=== PATIENT | male | born 1995 | race African-American/Black ===

== ENCOUNTER 2017-01-13 18:58 | Emergency (ER) | payer SELFPAY ==
--- NOTE | 2017-01-15 13:23 | ER ---
ADMIT: 01/13/2017 RM/LOC: ER [facility] MR#: [id number] [id number] [place], [place] [id number] ED, [address] [facility] [address] [place] [address] Emergency Room Report SEX: M AGE: 21 : 1995 DATE: 01/13/2017 TIME: 1858 hours. Please refer to the PA's T-sheet for complete H and P. HISTORY OF PRESENT ILLNESS: Briefly, the patient is a 21-year-old, who was actually going to get admitted for labs that were way abnormal. His CBC was drawn, it had a white count of 2.2, hemoglobin of 11.7, platelets of 5. I had already talked to the oncologist. I talked to the primary. We are going to admit to the hospital. NELA Carbajal, had discussed this with him directly. I repeated his CBC, it came back actually pretty normal. I repeated it 3rd time and it was pretty much normal. His white count was 7.5, hemoglobin was 13, platelets were 167. I discussed back with the doctor, we are going to admit. He received a liter of normal saline bolus, Protonix 40 mg IV. He was feeling much better, so we did orthostatic blood pressures, he was asymptomatic with them and his pressure was around 100, which may be normal for him. I had a long discussion with him. We are going to allow him to go home instead. ASSESSMENT: 1. Acute gastritis. 2. Vasovagal episode. PLAN: Zantac, Carafate, and to follow up with GI Clinic this week. Return if worse. Austin Deng MD/ archie JOB #: [id number] CC: Eugene Pimentel MD, Attending Physician UNKNOWN, Family Physician
--- NOTE | 2017-01-15 13:23 | ER ---
ADMIT: 01/13/2017 RM/LOC: ER [facility] MR#: [id number] [id number] [place], [place] [id number] ED, [address] [facility] [address] [place] [address] Emergency Room Report SEX: M AGE: 21 : 1995 DATE: 01/13/2017 CHIEF COMPLAINT: Today is chest pain. HISTORY OF PRESENT ILLNESS: This is a 21-year-old black male, who presents to the ER after a single episode of coffee-grounds emesis. The patient states he vomited about 1 hour prior to arrival. Began having some lightheadedness and dizziness. Does have an episode of orthostatic syncope in the department. Denies any medical problems. No medications. No drug or alcohol use. Denies any recent dark bloody stools or rectal bleeding. Does have some diffuse abdominal pain per his report and single episode of coffee-ground emesis. Denies any other medical problems or surgeries. MEDICATIONS: Takes no medications. ALLERGIES: HAS NO ALLERGIES. SOCIAL HISTORY: Denies smoking or drug use. Does occasionally use alcohol. On further questioning, does admit he has noted some easy bruising lately. COURSE IN THE EMERGENCY ROOM: The patient was seen and examined. Does have the episode of orthostatic blood pressure in the department, initially blood pressures over 70 systolically. Did start fluid resuscitation with 1 L bolus of normal saline. I did order some labs on him. CBC with diff, initially shows white count 2.2, hemoglobin 11.7, hematocrit 34.1, platelets were 5. Given the patient's neutropenia and thrombocytopenia, we did phone Dr. Villavicencio as well as Oncology for admission to workup this myelodysplastic disorder. IMPRESSION: 1. Myelodysplastic disorder. 2. Gastrointestinal bleed. DISPOSITION: Patient will be admitted to the care of Dr. Villavicencio with consulting physicians Hematology-Oncology. Patient was discharged to the floor in guarded condition. NELA Jameson / Austin Deng MD / archie JOB #: [id number] CC: Eugene Pimentel MD, Attending Physician UNKNOWN, Family Physician
== END 2017-01-13 22:05 | disposition home or self-care (01) ==
LOC: ER 18:58
DX: K29.70 Gastritis, unspecified, without bleeding (principal); K92.0 Hematemesis; R55 Syncope and collapse; C94.6 Myelodysplastic disease, not elsewhere classified